=== PATIENT | female | born 1975 | race Caucasian/White ===

== ENCOUNTER 2016-04-06 19:25 | Inpatient (IN) | payer SELFPAY ==
[2016-04-06] MEDS ORDERED: NORMAL SALINE 1000 ML 1,000 ML IV ONE ×3 (20:31→22:42)
--- NOTE | 2016-04-06 20:44 | ER Document Report ---
ED Medical Screen (RME) - General Chief Complaint: Flu Symptoms Stated Complaint: POSSIBLE FLU SYMPTOMS Mode of Arrival: Ambulatory Information source: Patient Notes: 40 y/o F presents to ED c/o chills, body aches, weakness, n/v, and painful cough over the last 5 days. States most symptoms have slightly improved but chest pain with cough and deep breathing has persisted. I have greeted and performed a rapid initial assessment of this patient. A comprehensive ED assessment and evaluation of the patient, analysis of test results and completion of the medical decision making process will be conducted by additional ED providers. TRAVEL OUTSIDE OF THE [place] IN LAST 30 DAYS: No - Related Data Allergies/Adverse Reactions: No Known Allergies Allergy (Unverified 04/06/16 20:33) Past Medical History - Social History Chew tobacco use (# tins/day): - .5 ppd Frequency of alcohol use: None Drug Abuse: None Renal/ Medical History: Denies: Hx Peritoneal Dialysis Physical Exam - Vital signs Vitals: Temp Pulse Resp BP Pulse Ox 97.9 F 126 H 24 H 66/46 L 99 04/06/16 20:32 04/06/16 20:32 04/06/16 20:32 04/06/16 20:32 04/06/16 20:32 - General General appearance: Alert In distress: None - Respiratory Respiratory status: No respiratory distress Chest status: Tender Breath sounds: Productive cough. No: Rhonchi, Wheezing - Cardiovascular Rhythm: Regular, Tachycardia Pulses: Normal: Radial Normal capillary refill: Yes Course - Vital Signs Vital signs: Temp Pulse Resp BP Pulse Ox 97.9 F 126 H 24 H 66/46 L 99 04/06/16 20:32 04/06/16 20:32 04/06/16 20:32 04/06/16 20:32 04/06/16 20:32
[2016-04-06] MEDS ORDERED: LEVOFLOXACIN 750 MG/D5W RTU 150 ML IV ONE (21:36)
[2016-04-06] MEDS ORDERED: CEFTRIAXONE 1 GM/D5W RTU 50 ML IV ONE (21:36)
--- NOTE | 2016-04-06 21:38 | ER Document Report ---
ED General - General Chief Complaint: Flu Symptoms Stated Complaint: POSSIBLE FLU SYMPTOMS Mode of Arrival: Ambulatory Cannot obtain history due to: Unstable vital signs Notes: Patient is a 40-year-old female without past medical history, did not receive a flu vaccine this year who presents with 2 days of progressively worsening cough , shortness of breath, diffuse weakness, and lightheadedness. Patient denies any prior history of similar symptoms. States "I feel like I'm dying". She's had one episode of nonbilious vomiting at home but states otherwise she has been able to tolerate oral intake. She is not had any diarrhea. Denies any abdominal pain, vaginal bleeding, dysuria, or flank pain. She is not seeing a primary care doctor regarding today's concerns. History is otherwise limited as patient is critically ill at time of initial assessment. TRAVEL OUTSIDE OF THE [place] IN LAST 30 DAYS: No - Related Data Allergies/Adverse Reactions: No Known Allergies Allergy (Unverified 04/06/16 20:33) Past Medical History - General Information source: Patient - Social History Smoking Status: Current Every Day Smoker Chew tobacco use (# tins/day): - .5 ppd Frequency of alcohol use: None Drug Abuse: None Lives with: Spouse/Significant other Family History: Reviewed & Not Pertinent Patient has suicidal ideation: No Patient has homicidal ideation: No Renal/ Medical History: Denies: Hx Peritoneal Dialysis Review of Systems - Review of Systems Notes: Constitutional: Negative for fever. HENT: Negative for sore throat. Eyes: Negative for visual changes. Cardiovascular: Negative for chest pain. Respiratory: Positive for shortness of breath and cough Gastrointestinal: Negative for abdominal pain, positive for a single episode of vomiting Genitourinary: Negative for dysuria. Musculoskeletal: Negative for back pain. Skin: Negative for rash. Neurological: Negative for headaches, weakness or numbness. 10 point ROS negative except as marked above and in HPI. Physical Exam - Vital signs Vitals: Temp Pulse Resp BP Pulse Ox 97.9 F 126 H 24 H 66/46 L 99 04/06/16 20:32 04/06/16 20:32 04/06/16 20:32 04/06/16 20:32 04/06/16 20:32 Interpretation: Hypotensive, Tachycardic, Tachypneic Notes: PHYSICAL EXAMINATION: GENERAL: Pale, diaphoretic, critically ill in appearance HEAD: Atraumatic, normocephalic. EYES: Pupils equal round and reactive to light, extraocular movements intact, sclera anicteric, conjunctiva are normal. ENT: nares patent, oropharynx clear without exudates. Dry mucous membranes. NECK: Normal range of motion, supple without lymphadenopathy LUNGS: Diminished breath sounds bilaterally worse on the left particular, left lower lobe. No wheezing. HEART: Regular tachycardia without murmurs ABDOMEN: Soft, nontender, normoactive bowel sounds. No guarding, no rebound. No masses appreciated. EXTREMITIES: Normal range of motion, no pitting or edema. No cyanosis. NEUROLOGICAL: No focal neurological deficits. Moves all extremities spontaneously and on command. PSYCH: Normal mood, normal affect. SKIN: Warm, Dry, normal turgor, no rashes or lesions noted. Course - Re-evaluation Re-evalutation: 04/06/16 21:37 Patient presents with severe hypotension initial pressures were in the 60s with tachycardia. She is very ill in appearance, pale, diaphoretic. She was immediately given a 1 L bolus after IV access was established which did improve her blood pressure to 88 on 56. Initial exam shows diminished breath sounds bilaterally worse on the left versus the right. Separable chest x-ray viewed immediately after being taken and shows bilateral infiltrates consistent with bilateral pneumonia. Patient will be immediately started on IV levofloxacin and ceftriaxone. A second fluid bolus will be administered. Will obtain a lactate, venous blood gas, and standard laboratories. Patient is critically ill this time will require frequent reassessments. 04/06/16 22:21 Patient continues to have improvement of her blood pressure, lactate elevated at 2.7. Ceftriaxone and levofloxacin are infusing. Continues to mentate appropriately at this time. Will reassess again shortly. 04/06/16 22:34 Patient's potassium is severely low at 2.4 on there are no EKG changes. Will begin replacement with magnesium and potassium at this time. Her blood pressure continues to improve. 04/06/16 23:07 Patient continues to appear clinically improved. Flu is negative. I discussed this case with Dr. Osborne was agreeable to admission at this time. - Vital Signs Vital signs: Temp Pulse Resp BP Pulse Ox 97.9 F 126 H 36 H 109/72 100 04/06/16 20:32 04/06/16 20:32 04/07/16 01:48 04/07/16 01:48 04/07/16 01:48 - Laboratory Result Diagrams: 04/06/16 21:44 04/06/16 21:44 Laboratory results interpreted by me: 04/06/16 04/06/16 04/06/16 21:44 21:44 21:44 WBC 10.6 H RBC 3.70 L Hgb 10.9 L Hct 32.0 L RDW 14.7 H Band Neutrophils % 23 H Lymphocytes % (Manual) 4 L Monocytes % (Manual) 2 L Abs Neuts (Manual) 9.9 H Sodium 136.2 L Potassium 2.4 L* Carbon Dioxide 20 L Est GFR (Non-Af Amer) 56 L POC Glucose Lactic Acid 2.7 H Calcium 8.0 L Total Protein 4.9 L Albumin 2.5 L Lipase < 10.0 L 04/06/16 22:06 WBC RBC Hgb Hct RDW Band Neutrophils % Lymphocytes % (Manual) Monocytes % (Manual) Abs Neuts (Manual) Sodium Potassium Carbon Dioxide Est GFR (Non-Af Amer) POC Glucose 119 H Lactic Acid Calcium Total Protein Albumin Lipase - Diagnostic Test Radiology reviewed: Image reviewed, Reports reviewed Radiology results interpreted by me: 04/06/16 21:38 Chest x-ray: Bilateral infiltrates - EKG Interpretation by Me Additional EKG results interpreted by me: 04/07/16 02:12 Sinus tachycardia. Rate 118. No ST elevations or depressions. QTC is 442. Critical Care Note - Critical Care Note Total time excluding time spent on procedures (mins): 35 Comments: Critical care time spent obtaining history from patient or surrogate, discussions with consultants, development of treatment plan with patient or surrogate, evaluation of patient's response to treatment, examination of patient , ordering and performing treatments and interventions, ordering and review of laboratory studies, re-evaluation of patient's condition, ordering and review of radiographic studies and review of old charts Discharge - Discharge Clinical Impression: Severe sepsis Bilateral pneumonia Qualifiers: Pneumonia type: due to unspecified organism Lung location: unspecified part of lung Qualified Code(s): J18.9 - Pneumonia, unspecified organism Condition: Fair Disposition: ADMITTED INPATIENT Admitting Provider: [place] [facility] Unit Admitted: [facility]
[2016-04-06 21:59] LABS: VENOUS BLOOD BASE EXCESS -4.1 mmol/L; VENOUS BLOOD HCO3 20.4 mmol/L (20-32); VENOUS BLOOD PCO2 36.1 mmHg (35-63); VENOUS BLOOD PH 7.37 (7.30-7.42)
[2016-04-06 22:02] LABS: HEMOGLOBIN 10.9 g/dL (12.0-15.5); HGB HCT DIFFERENCE 0.7; MEAN CORPUSCULAR HEMOGLOBIN 29.6 pg (27.0-33.4); MEAN CORPUSCULAR HGB CONC 34.1 g/dL (32.0-36.0); MEAN CORPUSCULAR VOLUME 87 fl (80-97); RED CELL DISTRIBUTION WIDTH 14.7 % (11.5-14.0); WHITE BLOOD COUNT 10.6 10^3/uL (4.0-10.5)
[2016-04-06 22:18] LABS: ALANINE AMINOTRANSFERASE 17 U/L (9-52); ALBUMIN 2.5 g/dL (3.5-5.0); ALKALINE PHOSPHATASE 92 U/L (38-126); ANION GAP 10 (5-19); ASPARTATE AMINO TRANSFERASE 14 U/L (14-36); BILIRUBIN,TOTAL 0.9 mg/dL (0.2-1.3); BLOOD UREA NITROGEN 15 mg/dL (7-20); CARBON DIOXIDE 20 mmol/L (22-30); CHLORIDE 106 mmol/L (98-107); CREATININE RESULT 1.07 mg/dL (0.52-1.25); GLUCOSE 100 mg/dL (75-110); LIPASE < 10.0 U/L (23-300); SODIUM 136.2 mmol/L (137-145); TOTAL PROTEIN 4.9 g/dL (6.3-8.2)
[2016-04-06 22:22] LABS: POTASSIUM 2.4 mmol/L (3.6-5.0)
[2016-04-06 22:24] LABS: BASOPHILS % (MANUAL) 0 % (0-2); EOSINOPHILS % (MANUAL) 0 % (0-6); LYMPHOCYTES % (MANUAL) 4 % (13-45); TOTAL CELLS COUNTED 100
[2016-04-06 22:25] LABS: HYPOCHROMASIA SLIGHT; TOXIC GRANULATION SLIGHT
[2016-04-06 22:26] LABS: BAND NEUTROPHILS % (MANUAL) 23 % (3-5)
[2016-04-06] MEDS ORDERED: POTASSIUM CHLORIDE 10 MEQ TABLET.SA PO ONE (22:33)
[2016-04-06 22:36] LABS: ADD ON TESTING BLD IN LAB ACKNOWLEDGE
[2016-04-06 22:50] LABS: MAGNESIUM 1.6 mg/dL (1.6-2.3)
[2016-04-06] MEDS ORDERED: VANCOMYCIN HCL 1,000 MG in DEXTROSE 5%-WATER 250 ML IV ONE (23:09)
[2016-04-06] MEDS ORDERED: IPRATROPIUM/ALBUTEROL 0.5-2.5 MG/3 ML AMPUL NEB PRN (23:09)
[2016-04-06] MEDS ORDERED: VANCOMYCIN HCL 0 MG in DEXTROSE 5%-WATER 250 ML IV NR (23:15)
[2016-04-06] MEDS: POTASSI CL 20 MEQ/50 ML RIDER 50 ML IV SCH (23:34)
[2016-04-06] MEDS: MAGNESIUM SULFATE/D5W 100 ML IV SCH (23:39)
--- NOTE | 2016-04-07 00:11 | EKG REPORT ---
SEVERITY:- ABNORMAL ECG - SINUS TACHYCARDIA NONSPECIFIC INTRAVENTRICULAR CONDUCTION DELAY BORDERLINE INFERIOR Q WAVES : Confirmed by: Ning Vinson 07-Apr-2016 00:11:24
[2016-04-07] MEDS ORDERED: MORPHINE SULFATE 10 MG/ML INJ ONE (00:16)
[2016-04-07] MEDS: GUAIFENESIN SYRP 200 MG/10 ML UDC PO PRN ×3 (00:24→09:25)
[2016-04-07] MEDS: MAGNESIUM SULFATE/D5W 100 ML IV SCH (01:01)
[2016-04-07] MEDS: POTASSI CL 20 MEQ/50 ML RIDER 50 ML IV SCH (01:03)
[2016-04-07] MEDS ORDERED: VANCOMYCIN HCL INJ 1000 MG VIAL ONE (01:57)
[2016-04-07] MEDS ORDERED: FLUTICASONE NASAL SPRAY 50 MCG/SPRY 120 SPRAY/16 GM ONE (01:57)
[2016-04-07] MEDS: IPRATROPIUM/ALBUTEROL 0.5-2.5 MG/3 ML AMPUL NEB SCH ×3 (02:55→13:51)
[2016-04-07] MEDS: NORMAL SALINE 1000 ML 1,000 ML IV SCH ×2 (03:03→09:25)
--- NOTE | 2016-04-07 04:46 | PDOC H&P ---
History of Present Illness Admission Date/PCP: 04/06/16 23:09 Patient complains of: Shortness of breath and cough History of Present Illness: SYLVIE RANGEL is a 40 year old female with a past medical history ofv Tobacco Dependence, chronic hypokalemia, chronic maxillary sinusitis and a remote history of cocaine abuse narcotic free for 19 years. She been her usual state of health until approximately 4 days ago with maxillary sinus pain, rhinorrhea fever chills developing shortness of breath and productive cough of yellow sputum not improved by [id number] medications prompting him to seek evaluation emergency room where she's found to have sepsis with bilateral multilobar pneumonia and bandemia. She started on empiric antibiotics referred to the hospitalist for admission. She denies recent infectious contacts or previous pneumonia. Past Medical History EENT Medical History: Reports: Nose - History of cocaine use and chronic maxillary sinusitis Renal/ Medical History: Reports: Other - Chronic hypokalemia Psychiatric Medical History: Reports: Substance Abuse, Tobacco Dependency Denies: Depression Social History Information Source: Patient Lives with: Spouse/Significant other Smoking Status: Current Some Day Smoker Cigarettes Packs Per Day: 1 Frequency of Alcohol Use: None Hx Recreational Drug Use: Yes - sniffing cocaine 19 years ago Hx Prescription Drug Abuse: No - Advance Directive Resuscitation Status: Full Code Family History Family History: Hypertension Parental Family History Reviewed: Yes Children Family History Reviewed: Yes Sibling(s) Family History Reviewed.: Yes Medication/Allergy Allergies/Adverse Reactions: No Known Allergies Allergy (Unverified 04/06/16 20:33) Review of Systems Constitutional: ABSENT: chills, fever(s), headache(s), weight gain, weight loss Eyes: ABSENT: visual disturbances Ears: ABSENT: hearing changes Cardiovascular: ABSENT: chest pain, dyspnea on exertion, edema, orthropnea, palpitations Respiratory: ABSENT: cough, hemoptysis Gastrointestinal: ABSENT: abdominal pain, constipation, diarrhea, hematemesis, hematochezia, nausea, vomiting Genitourinary: ABSENT: dysuria, hematuria Musculoskeletal: ABSENT: joint swelling Integumentary: ABSENT: rash, wounds Neurological: ABSENT: abnormal gait, abnormal speech, confusion, dizziness, focal weakness, syncope Psychiatric: ABSENT: anxiety, depression, homidical ideation, suicidal ideation Endocrine: ABSENT: cold intolerance, heat intolerance, polydipsia, polyuria Hematologic/Lymphatic: ABSENT: easy bleeding, easy bruising Physical Exam Vital Signs: Temp Pulse Resp BP Pulse Ox 97.8 F 132 H 26 H 101/60 96 04/07/16 00:40 04/07/16 03:15 04/07/16 03:15 04/07/16 02:01 04/07/16 02:01 Intake & Output 04/05/16 04/06/16 04/07/16 11:59 11:59 11:59 Intake Total 120 Balance 120 Weight 76.1 kg General appearance: PRESENT: cooperative, severe distress, other - Toxic appearing Head exam: PRESENT: atraumatic, normocephalic Eye exam: PRESENT: conjunctival injection, EOMI, PERRLA. ABSENT: scleral icterus Ear exam: PRESENT: normal external ear exam Mouth exam: PRESENT: moist, tongue midline Neck exam: ABSENT: carotid bruit, JVD, lymphadenopathy, thyromegaly Respiratory exam: PRESENT: accessory muscle use, decreased breath sounds, prolonged expiratory phas, rales, rhonchi, tachypnea Cardiovascular exam: PRESENT: RRR. ABSENT: diastolic murmur, rubs, systolic murmur Pulses: PRESENT: normal dorsalis pedis pul Vascular exam: PRESENT: normal capillary refill GI/Abdominal exam: PRESENT: normal bowel sounds, soft. ABSENT: distended, guarding, mass, organolmegaly, rebound, tenderness Rectal exam: PRESENT: deferred Extremities exam: PRESENT: full ROM. ABSENT: calf tenderness, clubbing, pedal edema Neurological exam: PRESENT: alert, awake, oriented to person, oriented to place , oriented to time, oriented to situation, CN II-XII grossly intact. ABSENT: motor sensory deficit Psychiatric exam: PRESENT: appropriate affect, normal mood. ABSENT: homicidal ideation, suicidal ideation Skin exam: PRESENT: dry, intact, warm. ABSENT: cyanosis, rash Results Laboratory Results: 04/07/16 02:10 Lactic Acid 2.3 H Impressions: Chest X-Ray 04/06/16 21:26 IMPRESSION: Diffuse bilateral patchy airspace disease. Assessment & Plan - Diagnosis (1) Bilateral pneumonia Qualifiers: Pneumonia type: due to unspecified organism Lung location: unspecified part of lung Qualified Code(s): J18.9 - Pneumonia, unspecified organism Is this a current diagnosis for this admission?: YesPlan: Complicated by maxillary sinusitis and rhinorrhea she is clearly septic and toxic appearing with bandemia and will be placed on vancomycin and Levaquin empirically following blood and sputum culture, symptomatic management and chest PT (2) Severe sepsis Is this a current diagnosis for this admission?: YesPlan: Please see #1 IV fluid challenge correction of the underlying cause and consideration of pressors (3) Tobacco dependence Is this a current diagnosis for this admission?: YesPlan: Tobacco Dependence patient received tobacco cessation counseling and offered nicotine replacement options - Time Time Spent: 50 to 70 Minutes
[2016-04-07 04:59] LABS: HEMATOCRIT 34.1 % (36.0-47.0); HEMOGLOBIN 11.3 g/dL (12.0-15.5); HGB HCT DIFFERENCE -0.2; MEAN CORPUSCULAR HEMOGLOBIN 28.9 pg (27.0-33.4); MEAN CORPUSCULAR VOLUME 88 fl (80-97); RED CELL DISTRIBUTION WIDTH 14.3 % (11.5-14.0); WHITE BLOOD COUNT 12.8 10^3/uL (4.0-10.5)
[2016-04-07 05:07] LABS: ANION GAP 13 (5-19); BLOOD UREA NITROGEN 12 mg/dL (7-20); CARBON DIOXIDE 17 mmol/L (22-30); CHLORIDE 110 mmol/L (98-107); CREATININE RESULT 0.78 mg/dL (0.52-1.25); GLUCOSE 127 mg/dL (75-110); SODIUM 139.7 mmol/L (137-145)
[2016-04-07] MEDS: HEPARIN SOD (PORCINE) 5,000 UNIT/ML 1 ML SYRINGE SUBCUT SCH ×3 (05:21→21:38)
[2016-04-07 05:22] LABS: POTASSIUM 3.9 mmol/L (3.6-5.0)
[2016-04-07 05:24] LABS: BAND NEUTROPHILS % (MANUAL) 28 % (3-5); BASOPHILS % (MANUAL) 0 % (0-2); EOSINOPHILS % (MANUAL) 0 % (0-6); LYMPHOCYTES % (MANUAL) 9 % (13-45); TOTAL CELLS COUNTED 100
[2016-04-07 05:26] LABS: ANISOCYTOSIS SLIGHT; BURR CELLS SLIGHT; OVALOCYTES SLIGHT; POIKILOCYTOSIS SLIGHT; SCHISTOCYTES SLIGHT; TEAR DROP CELLS SLIGHT; TOXIC GRANULATION 1+; TOXIC VACUOLATION PRESENT
[2016-04-07] MEDS: FLUTICASONE NASAL SPRAY 50 MCG/SPRY 120 SPRAY/16 GM NASL SCH ×2 (09:26→21:38)
[2016-04-07] MEDS: GUAIFENESIN 600 MG TABLET.SA PO SCH ×2 (09:26→21:38)
--- NOTE | 2016-04-07 10:06 | PDOC PROGRESS REPORT ---
Subjective Progress Note for:: 04/07/16 Subjective:: The patient reportedly tachycardic with a lot of pleurisy. Patient complains of some shortness of breath when taking a deep breath on nasal cannula oxygen. BiPAP was tried and the patient seems to be tolerating it. Patient denies any chills or fever at this time. Denies any diarrhea. No nausea or vomiting. Physical Exam Vital Signs: Temp Pulse Resp BP Pulse Ox 97.6 F 127 H 16 119/63 99 04/07/16 07:35 04/07/16 07:35 04/07/16 07:35 04/07/16 07:35 04/07/16 07:35 Intake & Output 04/06/16 04/07/16 04/08/16 06:59 06:59 06:59 Intake Total 482 Balance 482 Weight 76.1 kg General appearance: PRESENT: no acute distress, cooperative, other - On BiPAP Head exam: PRESENT: normocephalic Eye exam: PRESENT: EOMI Mouth exam: PRESENT: moist, neck supple Neck exam: ABSENT: JVD Respiratory exam: PRESENT: crackles - Bilateral. ABSENT: retraction, wheezes Cardiovascular exam: PRESENT: RRR, tachycardia GI/Abdominal exam: PRESENT: soft. ABSENT: distended, tenderness Extremities exam: PRESENT: other - Trace pretibial edema Neurological exam: PRESENT: alert, awake, oriented to person, oriented to place , oriented to time, oriented to situation Skin exam: PRESENT: dry, warm. ABSENT: cyanosis Results Laboratory Results: 04/07/16 04:07 04/07/16 04:07 04/07/16 04/07/16 04/07/16 02:10 04:07 04:07 WBC 12.8 H RBC 3.90 Hgb 11.3 L Hct 34.1 L MCV 88 MCH 28.9 MCHC 33.0 RDW 14.3 H Plt Count 169 Seg Neutrophils % Not Reportable Lymphocytes % Not Reportable Monocytes % Not Reportable Eosinophils % Not Reportable Basophils % Not Reportable Absolute Neutrophils Not Reportable Absolute Lymphocytes Not Reportable Absolute Monocytes Not Reportable Absolute Eosinophils Not Reportable Absolute Basophils Not Reportable Sodium 139.7 Potassium 3.9 D Chloride 110 H Carbon Dioxide 17 L Anion Gap 13 BUN 12 Creatinine 0.78 Est GFR ( Amer) > 60 Est GFR (Non-Af Amer) > 60 Glucose 127 H Lactic Acid 2.3 H Calcium 8.0 L Impressions: Chest X-Ray 04/06/16 21:26 IMPRESSION: Diffuse bilateral patchy airspace disease. Assessment & Plan - Diagnosis (1) Bilateral pneumonia Qualifiers: Pneumonia type: due to unspecified organism Lung location: unspecified part of lung Qualified Code(s): J18.9 - Pneumonia, unspecified organism Is this a current diagnosis for this admission?: Yes (2) Severe sepsis Is this a current diagnosis for this admission?: Yes (3) Hypocalcemia Is this a current diagnosis for this admission?: Yes (4) Anemia Qualifiers: Anemia type: unspecified type Qualified Code(s): D64.9 - Anemia, unspecified Is this a current diagnosis for this admission?: Yes (5) Substance abuse Is this a current diagnosis for this admission?: Yes - Time Time Spent with patient: 25-34 minutes - Plan Summary Plan Summary: We will put the patient on BiPAP. Continue gentle hydration. Continue current antibiotics for now. Add cefepime IV . Continue supportive care.
[2016-04-07] MEDS: VANCOMYCIN HCL 1 MG in DEXTROSE 5%-WATER 250 ML IV SCH ×2 (10:16→18:30)
[2016-04-07] MEDS: NORMAL SALINE 1000 ML 1,000 ML IV PRN ×2 (12:14→18:26)
[2016-04-07] MEDS: CEFEPIME HCL 2 GM in DEXTROSE 5%-WATER 50 ML IV SCH (12:16)
[2016-04-07 15:03] LABS: PATH REVIEW PATHOLOGIST REVIEWED
[2016-04-07] MEDS ORDERED: LEVALBUTEROL HCL NEB 1.25 MG/3 ML AMPUL NEB PRN (15:27)
[2016-04-07] MEDS: ACETAMINOPHEN 325 MG TABLET PO PRN (18:30)
[2016-04-07] MEDS: LEVALBUTEROL HCL NEB 1.25 MG/3 ML AMPUL NEB SCH (19:48)
[2016-04-07] MEDS: LEVOFLOXACIN 750 MG/D5W RTU 750 MG/150 ML RTUPB IV SCH (21:41)
[2016-04-07] MEDS ORDERED: CEFEPIME 2 GM/D5W RTU 50 ML IV SCH (22:00)
[2016-04-08] MEDS: CEFEPIME HCL 2 GM in DEXTROSE 5%-WATER 50 ML IV SCH ×2 (00:43→12:43)
[2016-04-08] MEDS: VANCOMYCIN HCL 1 MG in DEXTROSE 5%-WATER 250 ML IV SCH (01:49)
[2016-04-08] MEDS: ACETAMINOPHEN 325 MG TABLET PO PRN ×2 (01:54→22:39)
[2016-04-08] MEDS: LEVALBUTEROL HCL NEB 1.25 MG/3 ML AMPUL NEB SCH ×4 (02:14→19:45)
[2016-04-08 02:26] LABS: CREATININE RESULT 0.67 mg/dL (0.52-1.25)
[2016-04-08] MEDS: HEPARIN SOD (PORCINE) 5,000 UNIT/ML 1 ML SYRINGE SUBCUT SCH ×3 (05:48→22:38)
[2016-04-08] MEDS: GUAIFENESIN SYRP 200 MG/10 ML UDC PO PRN ×3 (05:52→23:09)
[2016-04-08 06:46] LABS: ABSOLUTE BASOPHILS # (AUTO) 0.1 10^3/uL (0.0-0.2); ABSOLUTE EOSINOPHILS # (AUTO) 0.2 10^3/uL (0.0-0.6); ABSOLUTE MONOCYTES (AUTO) 0.5 10^3/uL (0.1-1.4); ABSOLUTE NEUT (AUTO) 13.9 10^3/uL (1.7-8.2); BASOPHILS % (AUTO) 0.3 % (0-2); HEMATOCRIT 31.7 % (36.0-47.0); HEMOGLOBIN 10.6 g/dL (12.0-15.5); HGB HCT DIFFERENCE 0.1; LYMPHOCYTES % (AUTO) 6.7 % (13-45); MEAN CORPUSCULAR HEMOGLOBIN 28.8 pg (27.0-33.4); MEAN CORPUSCULAR HGB CONC 33.6 g/dL (32.0-36.0); MEAN CORPUSCULAR VOLUME 86 fl (80-97); MONOCYTES % (AUTO) 3.4 % (3-13); RED BLOOD COUNT 3.69 10^6/uL (3.72-5.28); RED CELL DISTRIBUTION WIDTH 14.9 % (11.5-14.0); SEGMENTED NEUTROPHILS % (AUTO) 88.6 % (42-78); WHITE BLOOD COUNT 15.6 10^3/uL (4.0-10.5)
[2016-04-08 07:02] LABS: ANION GAP 9 (5-19); BLOOD UREA NITROGEN 9 mg/dL (7-20); CALCIUM 8.4 mg/dL (8.4-10.2); CARBON DIOXIDE 20 mmol/L (22-30); CHLORIDE 111 mmol/L (98-107); CREATININE RESULT 0.68 mg/dL (0.52-1.25); GLUCOSE 90 mg/dL (75-110); SODIUM 139.7 mmol/L (137-145)
[2016-04-08 07:11] LABS: POTASSIUM 2.8 mmol/L (3.6-5.0)
[2016-04-08] MEDS: POTASSI CL 20 MEQ/50 ML RIDER 50 ML IV SCH ×4 (08:34→16:42)
[2016-04-08] MEDS: GUAIFENESIN 600 MG TABLET.SA PO SCH ×2 (09:26→22:38)
[2016-04-08] MEDS: FLUTICASONE NASAL SPRAY 50 MCG/SPRY 120 SPRAY/16 GM NASL SCH ×2 (09:26→22:42)
[2016-04-08] MEDS ORDERED: VANCOMYCIN HCL 1,500 MG in DEXTROSE 5%-WATER 250 ML IV SCH (10:00)
[2016-04-08] MEDS ORDERED: NORMAL SALINE 1000 ML 1,000 ML IV PRN (10:54)
--- NOTE | 2016-04-08 11:00 | PDOC PROGRESS REPORT ---
Subjective Progress Note for:: 04/08/16 Subjective:: Patient is feeling much better today than yesterday. She is able to tolerate off oxygen. Shortness of breath is less. Coughing is less. Pleurisy is better. No nausea or vomiting. Had episode of diarrhea yesterday but spontaneously resolved. No temperature spikes. Physical Exam Vital Signs: Temp Pulse Resp BP Pulse Ox 98.3 F 94 19 115/70 99 04/08/16 07:23 04/08/16 07:23 04/08/16 07:23 04/08/16 07:23 04/08/16 07:23 Intake & Output 04/07/16 04/08/16 04/09/16 06:59 06:59 06:59 Intake Total 482 4881 Balance 482 4881 Weight 76.1 kg 79.2 kg General appearance: PRESENT: no acute distress, cooperative Head exam: PRESENT: normocephalic Eye exam: PRESENT: EOMI Mouth exam: PRESENT: moist, neck supple Neck exam: ABSENT: JVD Respiratory exam: PRESENT: clear to auscultation penny - Anteriorly bilateral, crackles - Occasional posteriorly Cardiovascular exam: PRESENT: RRR, tachycardia - Slightly. ABSENT: gallop GI/Abdominal exam: PRESENT: normal bowel sounds, soft. ABSENT: distended, tenderness Extremities exam: ABSENT: pedal edema Neurological exam: PRESENT: alert, awake, oriented to situation Skin exam: PRESENT: dry, warm. ABSENT: cyanosis Results Laboratory Results: 04/08/16 06:26 04/08/16 06:26 04/07/16 04/08/16 04/08/16 04:07 01:59 06:26 WBC 15.6 H RBC 3.69 L Hgb 10.6 L Hct 31.7 L MCV 86 MCH 28.8 MCHC 33.6 RDW 14.9 H Plt Count 210 Seg Neutrophils % 88.6 H Lymphocytes % 6.7 L Monocytes % 3.4 Eosinophils % 1.0 Basophils % 0.3 Absolute Neutrophils 13.9 H Absolute Lymphocytes 1.0 Absolute Monocytes 0.5 Absolute Eosinophils 0.2 Absolute Basophils 0.1 Sodium Potassium Chloride Carbon Dioxide Anion Gap BUN Creatinine 0.67 Est GFR ( Amer) > 60 Est GFR (Non-Af Amer) > 60 Glucose Calcium TSH 0.86 04/08/16 06:26 WBC RBC Hgb Hct MCV MCH MCHC RDW Plt Count Seg Neutrophils % Lymphocytes % Monocytes % Eosinophils % Basophils % Absolute Neutrophils Absolute Lymphocytes Absolute Monocytes Absolute Eosinophils Absolute Basophils Sodium 139.7 Potassium 2.8 L* Chloride 111 H Carbon Dioxide 20 L Anion Gap 9 BUN 9 Creatinine 0.68 Est GFR ( Amer) > 60 Est GFR (Non-Af Amer) > 60 Glucose 90 Calcium 8.4 TSH Impressions: Chest X-Ray 04/06/16 21:26 IMPRESSION: Diffuse bilateral patchy airspace disease. Chest/Abdomen CTA 04/07/16 00:00 IMPRESSION: No evidence for pulmonary embolic disease. Dense bilateral airspace consolidation as noted above most consistent with pneumonic infiltrates. Tiny right pleural effusion is identified. Other findings as noted above Assessment & Plan - Diagnosis (1) Bilateral pneumonia Qualifiers: Pneumonia type: due to unspecified organism Lung location: unspecified part of lung Qualified Code(s): J18.9 - Pneumonia, unspecified organism Is this a current diagnosis for this admission?: Yes (2) Severe sepsis Is this a current diagnosis for this admission?: Yes (3) Hypocalcemia Is this a current diagnosis for this admission?: Yes (4) Anemia Qualifiers: Anemia type: unspecified type Qualified Code(s): D64.9 - Anemia, unspecified Is this a current diagnosis for this admission?: Yes (5) Substance abuse Is this a current diagnosis for this admission?: Yes - Time Time Spent with patient: 25-34 minutes - Plan Summary Plan Summary: Continue cefepime and Levaquin. Follow cultures. Discontinue vancomycin. Increase activity. Continue to wean oxygen. Decrease intravenous fluids. Monitor electrolytes & WBC.
[2016-04-08] MEDS ORDERED: DIPHENHYDRAMINE HCL 25 MG CAPSULE PO PRN (22:14)
[2016-04-08] MEDS ORDERED: DIPHENHYDRAMINE HCL 25 MG CAPSULE ONE (22:35)
[2016-04-08] MEDS: LEVOFLOXACIN 750 MG/D5W RTU 750 MG/150 ML RTUPB IV SCH (22:38)
[2016-04-09] MEDS: CEFEPIME HCL 2 GM in DEXTROSE 5%-WATER 50 ML IV SCH ×2 (00:36→12:56)
[2016-04-09] MEDS: LEVALBUTEROL HCL NEB 1.25 MG/3 ML AMPUL NEB SCH ×3 (01:53→13:15)
[2016-04-09] MEDS: HEPARIN SOD (PORCINE) 5,000 UNIT/ML 1 ML SYRINGE SUBCUT SCH ×2 (05:57→14:05)
[2016-04-09 06:21] LABS: ANION GAP 9 (5-19); BLOOD UREA NITROGEN 8 mg/dL (7-20); CALCIUM 8.2 mg/dL (8.4-10.2); CARBON DIOXIDE 23 mmol/L (22-30); CHLORIDE 108 mmol/L (98-107); GLUCOSE 82 mg/dL (75-110); SODIUM 140.3 mmol/L (137-145)
[2016-04-09 06:24] LABS: POTASSIUM 2.8 mmol/L (3.6-5.0)
[2016-04-09 06:27] LABS: HEMATOCRIT 28.5 % (36.0-47.0); HEMOGLOBIN 9.6 g/dL (12.0-15.5); HGB HCT DIFFERENCE 0.3; MEAN CORPUSCULAR HEMOGLOBIN 28.7 pg (27.0-33.4); MEAN CORPUSCULAR HGB CONC 33.7 g/dL (32.0-36.0); MEAN CORPUSCULAR VOLUME 85 fl (80-97); RED BLOOD COUNT 3.35 10^6/uL (3.72-5.28); RED CELL DISTRIBUTION WIDTH 14.9 % (11.5-14.0); WHITE BLOOD COUNT 11.5 10^3/uL (4.0-10.5)
[2016-04-09 06:36] LABS: ANISOCYTOSIS SLIGHT; BASOPHILS % (MANUAL) 0 % (0-2); EOSINOPHILS % (MANUAL) 0 % (0-6); LYMPHOCYTES % (MANUAL) 13 % (13-45); POLYCHROMASIA SLIGHT; SCHISTOCYTES SLIGHT; TOTAL CELLS COUNTED 100; TOXIC GRANULATION SLIGHT; TOXIC VACUOLATION PRESENT
[2016-04-09] MEDS: GUAIFENESIN 600 MG TABLET.SA PO SCH (09:36)
[2016-04-09] MEDS: FLUTICASONE NASAL SPRAY 50 MCG/SPRY 120 SPRAY/16 GM NASL SCH (09:36)
[2016-04-09] MEDS ORDERED: POTASSIUM CHLORIDE 10 MEQ TABLET.SA PO ONE ×2 (13:00→16:00)
--- NOTE | 2016-04-09 16:14 | PDOC DISCHARGE SUMMARY ---
General - Admit/Disc Date/PCP Admission Date/Primary Care Provider: 04/06/16 23:09 Discharge Date: 04/09/16 - Discharge Diagnosis (1) Bacteremia due to Streptococcus pneumoniae Is this a current diagnosis for this admission?: Yes (2) Bilateral pneumonia Is this a current diagnosis for this admission?: Yes (3) Hypocalcemia Is this a current diagnosis for this admission?: Yes (4) Anemia Is this a current diagnosis for this admission?: Yes (5) Substance abuse Is this a current diagnosis for this admission?: Yes - Additional Information Resuscitation Status: Full Code Discharge Diet: Regular, Other (Comments) - increase intake of fluids and fruits rich in potassium. Discharge Activity: Activity As Tolerated, Balance Activity w/Rest, Slowly Increase Activity Home Medications: Albuterol Sulfate [Ventolin Hfa] 1 - 2 puff IH Q4 PRN #1 hfa.aer.ad 04/09/16 Guaifenesin [Mucinex Sr 600 mg Tablet.sa] 1,200 mg PO Q12 PRN #40 tablet.sa Levofloxacin [Levaquin 750 mg Tablet] 750 mg PO DAILY #11 tab 04/09/16 Additional Information: Repeat potassium level as outpatient with primary care physician in one week. Rest at home for at least one week. History of Present Illness Patient complains of: Cough and shortness of breath History of Present Illness: SYLVIE RANGEL is a 40 year old female, with history of substance abuse in the past, apparently has been dealing with this congestion with cough and yellowish phlegm the past few days subsequently followed by shortness of breath. The patient presented to the emergency room because of increasing symptoms and found to have bilateral infiltrates on the chest x-ray. Was given intravenous fluids, IV antibiotics and was referred for admission.Refer to history and physical examination performed by the admitting physician. Hospital Course Hospital Course: The patient was admitted to [facility]. The patient was started on intravenous fluids. Broad spectrum antibiotics was started to cover for community-acquired organisms. Cultures were done as well as sputum cultures. The patients course was noted for tachycardia likely secondary to sepsis or bacteremia. She had some shortness of breath and tried on BiPAP. Initially she tolerated the BiPAP but eventually she was able to be weaned off. CTA of the chest did not reveal pulmonary embolism but did reveal dense consolidation bilaterally with small effusion. TSH was normal. Patient was continued on intravenous fluids, mucolytics were given for cough, bronchodilators was likewise given for shortness of breath. However the albuterol initially ordered was shifted to Xopenex and eventually the patient's tachycardia significantly improved. Blood culture did show Streptococcus pneumonia on one bottle. Sputum culture shows Joana. The patient significantly improved. WBC was monitored and was trending down. Course was noted for hypokalemia on w/ c supplements were given. Eventually the patient was able to ambulate around and increase her activity. Patient does not want to stay in the hospital any longer. She wanted to continue treatment outpatient. The rest of the hospital stay is unremarkable. She was eventually discharged home with instructions to continue to resting at home and recover. Physical Exam Vital Signs: Temp Pulse Resp BP Pulse Ox 98.6 F 105 H 16 126/78 H 98 04/09/16 11:39 04/09/16 14:00 04/09/16 13:15 04/09/16 11:39 04/09/16 13:15 Intake & Output 04/08/16 04/09/16 04/10/16 06:59 06:59 06:59 Intake Total 4881 5680 473 Output Total 3 Balance 4881 5677 473 Weight 79.2 kg 79.8 kg General appearance: PRESENT: no acute distress, cooperative Head exam: PRESENT: normocephalic Eye exam: PRESENT: EOMI Mouth exam: PRESENT: moist, neck supple Neck exam: ABSENT: JVD Respiratory exam: PRESENT: unlabored. ABSENT: rhonchi, wheezes Cardiovascular exam: PRESENT: RRR. ABSENT: gallop GI/Abdominal exam: PRESENT: normal bowel sounds, soft. ABSENT: distended Extremities exam: ABSENT: pedal edema Neurological exam: PRESENT: alert, awake, oriented to person, oriented to place , oriented to time, oriented to situation Skin exam: PRESENT: dry, warm. ABSENT: cyanosis Results Laboratory Results: 04/09/16 05:02 04/09/16 05:02 04/09/16 04/09/16 05:02 05:02 WBC 11.5 H RBC 3.35 L Hgb 9.6 L Hct 28.5 L MCV 85 MCH 28.7 MCHC 33.7 RDW 14.9 H Plt Count 230 Seg Neutrophils % Not Reportable Lymphocytes % Not Reportable Monocytes % Not Reportable Eosinophils % Not Reportable Basophils % Not Reportable Absolute Neutrophils Not Reportable Absolute Lymphocytes Not Reportable Absolute Monocytes Not Reportable Absolute Eosinophils Not Reportable Absolute Basophils Not Reportable Sodium 140.3 Potassium 2.8 L* Chloride 108 H Carbon Dioxide 23 Anion Gap 9 BUN 8 Creatinine 0.60 Est GFR ( Amer) > 60 Est GFR (Non-Af Amer) > 60 Glucose 82 Calcium 8.2 L 04/07/16 06:28 Sputum Gram Stain - Final 04/07/16 06:28 Sputum Sputum Culture - Final C.albicans/C.dubliniensis Reduced Normal Jessica Impressions: Chest X-Ray 04/06/16 21:26 IMPRESSION: Diffuse bilateral patchy airspace disease. Chest/Abdomen CTA 04/07/16 00:00 IMPRESSION: No evidence for pulmonary embolic disease. Dense bilateral airspace consolidation as noted above most consistent with pneumonic infiltrates. Tiny right pleural effusion is identified. Other findings as noted above Qualifiers PATEINT BEING DISCHARGED WITH ANY OF THE FOLLOWING DIAGNOSIS?: No Plan Discharge Plan: Follow-up with primary care physician in one week Time Spent: Less than 30 Minutes
[2016-04-09 16:27] VITALS: BP 122/57
== END 2016-04-09 17:08 | disposition home or self-care (01) | DRG 871 ==
LOC: ER 19:25 → EH 23:09 → UNDOADMIN 04-07 00:32 → EH 04-07 00:32 → 3N 04-07 02:51
PROVIDERS: ADMIT Internal Medicine; ATTEND Internal Medicine
PROC: 5A09457 Assistance with Respiratory Ventilation, 24-96 Consecutive Hours, Continuous Positive Airway Pressure (ICD-10-PCS; principal; 2016-04-06)
DX: A40.3 Sepsis due to Streptococcus pneumoniae (principal); J18.9 Pneumonia, unspecified organism; R65.20 Severe sepsis without septic shock; E87.6 Hypokalemia; E83.51 Hypocalcemia; D64.9 Anemia, unspecified; F14.21 Cocaine dependence, in remission; J32.0 Chronic maxillary sinusitis; F17.210 Nicotine dependence, cigarettes, uncomplicated
CPT/HCPCS: 36415; 71010; 71275; 80048; 80053; 80202; 82565; 82803; 82962; 83605; 83690; 83735; 84443; 84703; 85025; 87040; 87070; 87077; 87186; 87205; 87804; 93005; 93010; 94640; 94660; 94667; 94799; 96365; 96367; 96368; 99285; J0692; J0696; J1644; J1956; J3370; J3475; J3480; J3490; J7030; J7060; J7620

== ENCOUNTER → 2016-06-12 | Outpatient (CLI) | payer MEDICAID | LOC: WI 07:10 | PROVIDERS: ATTEND Physician Assistant | DX: Z12.31 Encounter for screening mammogram for malignant neoplasm of breast (principal); R10.2 Pelvic and perineal pain | CPT/HCPCS: 76830; G0202; 77067 ==

== ENCOUNTER → 2016-07-15 | Outpatient (CLI) | payer MEDICAID ==
--- NOTE | 2016-07-15 15:05 | RADIOLOGY REPORT (SQ) ---
EXAM DESCRIPTION: KNEE RIGHT 4 VIEWS COMPLETED DATE/TIME: 07/15/2016 2:57 pm REASON FOR STUDY: PAIN IN RIGHT KNEE M25.561 PAIN IN RIGHT KNEE COMPARISON: None. NUMBER OF VIEWS: Four views. TECHNIQUE: AP, lateral, and both oblique radiographic images acquired of the right knee. LIMITATIONS: None. FINDINGS: MINERALIZATION: Normal. BONES: No acute fracture or dislocation. No worrisome bone lesions. JOINT: There is a small joint effusion. SOFT TISSUES: No soft tissue swelling. No radio-opaque foreign body. OTHER: No other significant finding. IMPRESSION: There is a joint effusion with no osseous abnormality. If there is concern for internal derangement, consider MRI. TECHNICAL DOCUMENTATION: JOB ID: [id number] [employer]- All Rights Reserved
== END ==
LOC: OD 14:40
PROVIDERS: ATTEND Physician Assistant
DX: M25.561 Pain in right knee (principal)

== ENCOUNTER → 2016-07-28 | Outpatient (CLI) | payer MEDICAID ==
--- NOTE | 2016-07-29 09:32 | RADIOLOGY REPORT (SQ) ---
EXAM DESCRIPTION: MRI RT LOWER JOINT WITHOUT COMPLETED DATE/TIME: 07/28/2016 8:30 pm REASON FOR STUDY: PAIN IN RIGHT KNEE M25.561 PAIN IN RIGHT KNEE COMPARISON: 07/15/2016 radiographs. TECHNIQUE: Rightknee images acquired and stored on PACS. Multiplanar images include fat sensitive s equences as T1, water sensitive sequences as FST2 or STIR, cartilage sensitive sequences as FSPD, and gradient echo sequences. LIMITATIONS: None. FINDINGS: JOINT AND BURSAE: Large joint effusion. No loose bodies appreciated. BONE CORTEX AND MARROW: Cystic changes and edema in the tibia and fibula about the tibiofibular artic ulation. There appears to be some adjacent mild extraosseous ganglion formation here as well. No fr acture. No worrisome bone lesion. ACL: Intact. PCL: Intact. MCL: Intact. LCL: Intact. MEDIAL MENISCUS: No tears. No abnormal signal. LATERAL MENISCUS: No tears. No abnormal signal. MEDIAL COMPARTMENT: Cartilage preserved. No bone bruises or reactive marrow edema. No osteophytes. LATERAL COMPARTMENT: Cartilage preserved. No bone bruises or reactive marrow edema. No osteophytes. PATELLA: No chondral defects. Normal patellar height. EXTENSOR MECHANISM: Intact. Quadriceps and patella tendons normal. SOFT TISSUES: Edema and fluid along the medial knee may be related to recently ruptured popliteal cys t. OTHER: No other significant finding. IMPRESSION: 1. Large joint effusion. Probable recently ruptured popliteal cyst. 2. Tibiofibular arthropathy. Associated bone and soft tissue changes as above. 3. No evidence of cruciate or colla teral ligament tear. No meniscus lesion identified. No chondral defects evident. TECHNICAL DOCUMENTATION: JOB ID: [id number] [employer]- All Rights Reserved
== END ==
LOC: RAD 18:55
PROVIDERS: ATTEND Physician Assistant
DX: M25.561 Pain in right knee (principal)

== ENCOUNTER → 2016-08-21 | Outpatient (CLI) | payer MEDICAID ==
[2016-08-21 17:11] LABS: ABSOLUTE BASOPHILS # (AUTO) 0.1 10^3/uL (0.0-0.2); ABSOLUTE EOSINOPHILS # (AUTO) 0.2 10^3/uL (0.0-0.6); ABSOLUTE LYMPHOCYTES (AUTO) 2.2 10^3/uL (0.5-4.7); ABSOLUTE MONOCYTES (AUTO) 0.6 10^3/uL (0.1-1.4); ABSOLUTE NEUT (AUTO) 4.8 10^3/uL (1.7-8.2); BASOPHILS % (AUTO) 0.7 % (0-2); EOSINOPHILS % (AUTO) 2.3 % (0-6); HEMATOCRIT 38.3 % (36.0-47.0); HEMOGLOBIN 12.3 g/dL (12.0-15.5); HGB HCT DIFFERENCE -1.4; LYMPHOCYTES % (AUTO) 28.1 % (13-45); MEAN CORPUSCULAR HEMOGLOBIN 27.6 pg (27.0-33.4); MEAN CORPUSCULAR HGB CONC 32.1 g/dL (32.0-36.0); MEAN CORPUSCULAR VOLUME 86 fl (80-97); MONOCYTES % (AUTO) 7.9 % (3-13); RED BLOOD COUNT 4.45 10^6/uL (3.72-5.28); RED CELL DISTRIBUTION WIDTH 14.2 % (11.5-14.0); WHITE BLOOD COUNT 7.9 10^3/uL (4.0-10.5)
[2016-08-21 17:48] LABS: ALANINE AMINOTRANSFERASE 17 U/L (9-52); ALBUMIN 4.2 g/dL (3.5-5.0); ALKALINE PHOSPHATASE 72 U/L (38-126); ANION GAP 12 (5-19); ASPARTATE AMINO TRANSFERASE 11 U/L (14-36); BILIRUBIN,DIRECT 0.3 mg/dL (0.0-0.4); BILIRUBIN,TOTAL 0.4 mg/dL (0.2-1.3); BLOOD UREA NITROGEN 9 mg/dL (7-20); CALCIUM 9.2 mg/dL (8.4-10.2); CARBON DIOXIDE 28 mmol/L (22-30); CHLORIDE 101 mmol/L (98-107); CREATININE RESULT 0.64 mg/dL (0.52-1.25); GLUCOSE 94 mg/dL (75-110); POTASSIUM 4.2 mmol/L (3.6-5.0); SODIUM 140.6 mmol/L (137-145); TOTAL PROTEIN 7.4 g/dL (6.3-8.2)
== END ==
LOC: LAB 17:04
PROVIDERS: ATTEND Physician Assistant
DX: M25.561 Pain in right knee (principal)
CPT/HCPCS: 36415; 80053; 85025

== ENCOUNTER → 2016-08-21 | Outpatient (CLI) | payer MEDICAID ==
--- NOTE | 2016-08-21 17:46 | RADIOLOGY REPORT (SQ) ---
EXAM DESCRIPTION: VENOUS UNILATERAL LOWER COMPLETED DATE/TIME: 08/21/2016 5:32 pm REASON FOR STUDY: RLE PAIN M25.561 PAIN IN RIGHT KNEE COMPARISON: MRI FROM 07/28/2016 TECHNIQUE: Dynamic and static ram scale and color images acquired of the right leg venous system. S elected spectral images acquired with additional compression and augmentation maneuvers. The contrala teral common femoral vein and saphenofemoral junction were also imaged. Images stored on PACS. LIMITATIONS: None. FINDINGS: COMMON FEMORAL: Normal phasicity, compression and augmentation. No visualized echogenic ma terial on ram scale. No defects on color images. FEMORAL: Normal compression and augmentation. No visualized echogenic material on ram scale. No defe cts on color images. POPLITEAL: Normal compression, augmentation. No visualized echogenic material on ram scale. No defec ts on color images. CALF VESSELS: Normal compression, augmentation. No visualized echogenic material on ram scale. No de fects on color images. GSV and SSV: Normal compression, augmentation. No visualized echogenic material on ram scale. No def ects on color images. ANY DEEP VENOUS INSUFFICIENCY: Not evaluated. ANY EVIDENCE OF POPLITEAL CYST: 5.2 cm popliteal fossa cyst similar to prior MRI. OTHER: No other significant finding. CONTRALATERAL COMMON FEMORAL VEIN AND SAPHENOFEMORAL JUNCTION: Normal phasicity, compression and augmentation. No visualized echogenic material on ram scale. No de fects on color images. IMPRESSION: NO EVIDENCE DVT OR SVT IN THE RIGHT LEG. POPLITEAL FOSSA CYST SIMILAR TO PRIOR MRI. TECHNICAL DOCUMENTATION: JOB ID: [id number] [employer]- All Rights Reserved
== END ==
LOC: SP 15:31
PROVIDERS: ATTEND Family Medicine
DX: M25.561 Pain in right knee (principal)
CPT/HCPCS: 93971